=== PATIENT | male | born 1955 | race Caucasian/White ===

== ENCOUNTER 2016-06-11 13:19 | Emergency (ER) | payer OTHER ==
[~2016-06-11] VITALS: Ht 175.3 cm; Wt 125.3 kg
[~2016-06-11 13:19] MED LIST: LISI-729 PO; METF500T PO; MULTTAB58 PO
[2016-06-11 13:23] VITALS: TEMP 36.9; Ht 175.3 cm; Wt 125.3 kg
[2016-06-11] MEDS ORDERED: TRAMADOL HCL 50 MG TAB PO STA (14:44)
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
[2016-06-11] MEDS ORDERED: TRAM-10 PO (15:48)
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
[2016-06-11 15:56] VITALS: BP 135/89; PULSE 79; O2SAT 96
== END 2016-06-11 16:26 | disposition home or self-care (01) ==
LOC: C.EDB 13:20 → C.EDD 16:26
DX: S39.012A Strain of muscle, fascia and tendon of lower back, initial encounter (principal); X58.XXXA Exposure to other specified factors, initial encounter

== ENCOUNTER → 2017-08-05 | Outpatient (CLI) | payer OTHER ==
[2017-08-05 18:28] LABS: BLOOD UREA NITROGEN 19 mg/dl (7-18); CALCIUM 9.1 mg/dl (8.5-10.1); CARBON DIOXIDE 29 mmol/L (21-32); CREATININE 1.08 mg/dl (0.60-1.40); GLUCOSE 89 mg/dl (70-99); POTASSIUM 5.1 mmol/L (3.5-5.1); SODIUM 138 mmol/L (136-145)
[2017-08-06 05:53] LABS: HEMOGLOBIN A1C 6.1 % (4.5-5.6)
== END | disposition home or self-care (01) ==
LOC: C.LABPVFM 15:20
PROVIDERS: ATTEND Nurse Practitioner
DX: E11.9 Type 2 diabetes mellitus without complications (principal)

== ENCOUNTER → 2017-11-29 | Outpatient (CLI) | payer OTHER ==
--- NOTE | 2017-11-29 10:52 | DIAGNOSTIC IMAGING REPORT ---
CHEST 2 VIEWS ROUTINE HISTORY: COPD with acute bronchitis COMPARISON: None. FINDINGS: The lungs are clear. Cardiac silhouette is normal in size. No pleural effusions. No pneumothorax. IMPRESSION: No acute process. Electronically signed by: Herve Almaraz M.D. 11/29/2017 10:51 AM Dictated Date/Time: 11/29/2017 10:49 AM
== END | disposition home or self-care (01) ==
LOC: C.RADPV 10:27
PROVIDERS: ATTEND Nurse Practitioner
DX: J44.0 Chronic obstructive pulmonary disease with (acute) lower respiratory infection (principal)